=== PATIENT | female | born 1995 | race Hispanic/Latino ===

== ENCOUNTER 2022-03-20 15:08 | Emergency (ER) | payer OTHER ==
--- OUTSIDE RECORDS SUMMARY | 2022-03-20 15:36 | XMS REPORT | Continuity of Care Document ---
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 Medical Branch CBC WITH DIFF 2019-11-29 06:06:00 [facility] ASSIGNMENT OF BENEFITS 2019-11-29 04:19:38 Doctor Unassigned, No [facility] NOTICE OF PRIVACY 2019-11-29 04:19:22 Doctor Unassigned, No Univ ersity of [facility] Branch CONSENT/REFUSAL FOR 2019-11-29 04:19:12 Doctor Unassigned, No [facility] [place] DI[facility]NOSIS [facility] TREATMENT Name Medical Branch LIPASE 2019-09-04 17:20:00 [facility] MAGNESIUM 2019-09-04 17:20:00 [facility] COMP. METABOLIC PANEL 2019-09-04 17:20:00 [facility] ([id number]) [facility] CBC WITH DIFFERENTIAL 2019-09-04 17:20:00 [facility] URINALYSIS 2019-09-04 17:20:00 [facility] NOTICE OF PRIVACY 2019-09-04 17:03:43 Doctor Unassigned, No Univ ersity of [facility] CONSENT/REFUSAL FOR 2019-09-04 17:02:46 Doctor Unassigned, No [facility] [place] DIAGNOSIS AND TREATMENT Name [facility] Branch LIPASE 2019-08-24 10:06:00 Sudarshan Ortez [facility] COMP. METABOLIC PANEL 2019-08-24 10:06:00 Sudarshan Ortez [facility] ([id number]) [facility] Branch CBC WITH DIFFERENTIAL 2019-08-24 10:06:00 [facility] URINALYSIS 2019-08-24 10:06:00 Sudarshan Ortez [facility] NOTICE OF PRIVACY 2019-08-24 09:41:31 Doctor Unassigned, No Univ ersity of [facility] Branch CONSENT/REFUSAL FOR 2019-08-24 09:40:59 Doctor Unassigned, No [facility] [place] DIAGNOSIS AND TREATMENT Name Medical [place] BASIC METABOLIC PANEL 2019-07-26 16:43:00 Chel Grove [facility] (NA, K, CL, CO2, Medical Branch GLUCOSE, BUN, CREATININE, CA) Plan of Care Planned Activity Planned Date Details Comments Source Future Scheduled Test 2022-01-01 00:00:00 IMM Influenza [facility] Seasonal (>/= 19 yrs) [code = IMM Influenza Seasonal (>/= 19 yrs)] Future Scheduled Test 2022-01-01 00:00:00 IMM Influenza [facility] Seasonal (>/= 19 yrs) [code = IMM Influenza Seasonal (>/= 19 yrs)] Future Scheduled Test 2015 00:00:00 Screening for [facility] malignant neoplasm of cervix (procedure) [code = 174716412] Future Scheduled Test 2015 00:00:00 Screening for [facility] malignant neoplasm of cervix (procedure) [code = 281039582] Future Scheduled Test 1994 00:00:00 COVID-19 Vaccine (#1) [facility] [code = COVID-19 Vaccine (#1)] Future Scheduled Test 1994 00:00:00 COVID-19 Vaccine (#1) [facility] [code = COVID-19 Vaccine (#1)] Future Scheduled Test 1994 00:00:00 Fluoride Varnish [facility] [code = Fluoride Varnish] Encounters Start End Encounter Admission Attending Care Care Encounter Source Date/Time Date/Time Type Type Clinicians Facility Department ID 2018-04-02 Inpatient [facility] [id number] H arris 00:00:00 [facility] 2018-03-29 Inpatient [facility] [id number] H arris 15:53:12 [facility] 2018-03-26 Inpatient [facility] [id number] H arris 17:23:46 [facility] 2018-03-26 Inpatient [facility] [id number] H arris 06:34:09 [facility] 2018-03-20 Inpatient [facility] [id number] H arris 16:55:55 Health 2018-03-20 Inpatient [facility] [id number] H arris 13:04:03 [facility] 2018-03-20 Inpatient [facility] [id number] H arris 07:54:32 Health 2018-03-20 Inpatient [facility] [id number] H arris 03:08:50 Health 2018-03-19 Inpatient [facility] [id number] H arris 16:40:13 [facility] 2018-03-19 Inpatient [facility] [id number] H arris 12:31:23 Health 2018-03-19 Inpatient [facility] [id number] H arris 00:00:00 Health 2018-03-18 Inpatient [facility] [id number] H arris 00:00:00 [facility] 2019-12-28 2019-12-28 [facility] Kamari [facility] [id number] Univers 15:32:00 19:10:00 Encounter Jasmin Lamb [id number] ity of [place] 4.2.7.2.686 [facility] [id number] [place] [address] [place] 2019-12-28 2019-12-28 Outpatient P GENNAJASMIN PEPPER [facility] FERMÍN [id number] Univers 15:32:00 15:32:00 EMMANUELJASMIN Spaulding [facility] 2019-11-28 2019-11-29 [facility] Zenobia Lockett [facility] [id number] Univers 23:21:00 13:10:00 Encounter Adonis [id number] ity of [place] 4.2.7.[address] [place] [address] [id number] [place] [address]903 [place] 2019-11-28 2019-11-28 Outpatient P TOMASENEDINA [facility] FERMÍN [id number] Univers 23:21:00 23:21:00 ity of [facility] 2019-11-28 2019-11-28 Orders Doctor HARRISON [id number] Univers 00:00:00 00:00:00 Only Unassigned, ERICKSON [id number] ity of [place] [facility] 4.2.7.2.686 [place] [id number] [facility] 009 Branch 2019-09-04 2019-09-04 Emergency [facility] [id number] Univers 12:09:18 14:18:00 Nick Lamb [id number] i ty of [place] 4.2.7.2.686 [facility] [id number] [facility] 084 Branch 2019-09-04 2019-09-04 Emergency [facility] [id number] Univers 12:09:18 12:09:18 NICK candelaria [facility] 2019-09-04 2019-09-04 Orders Doctor HARRISON [id number] Univers 00:00:00 00:00:00 Only Unassigned, ERICKSON [id number] ity of [facility] 4.2.7.2.686 [place] [id number] [facility] 009 [place] 2019-08-24 2019-08-24 Emergency [facility] [id number] Univers 04:44:43 08:22:00 Sudarshan Lamb [id number] ity of [place] 4.2.7.2.686 [facility] [id number] [address] 2019-08-24 2019-08-24 Emergency X [facility] ERT [id number] Univers 04:44:43 04:44:43 ity of [facility] 2019-07-26 2019-07-26 Emergency [facility] [id number] Univers 11:18:56 12:25:00 Chel Lamb [id number] i ty of [place] 4.2.7.2.686 [facility] [id number] [address] 2019-07-26 2019-07-26 Emergency X [facility] ERT [id number] Univers 11:18:56 11:18:56 CHEL candelaria [facility] 2018-07-18 2018-07-18 Outpatient [facility] [id number] [place] 00:00:00 00:00:00 [facility] 2018-07-11 2018-07-11 Outpatient [facility] [id number] [place] 00:00:00 00:00:00 [facility] 2018-07-04 2018-07-04 Outpatient [facility] [id number] [place] 00:00:00 00:00:00 [facility] 2018-06-22 2018-06-22 Outpatient [facility] [id number] [place] 11:22:05 11:22:05 Health 2018-06-22 2018-06-22 Outpatient [facility] [id number] [place] 10:39:15 10:39:15 Health 2018-06-08 2018-06-08 Outpatient [facility] [id number] [place] 00:00:00 00:00:00 [facility] 2018-06-07 2018-06-07 Outpatient [facility] [id number] [place] 14:52:46 14:52:46 Health 2018-06-06 2018-06-06 Emergency [facility] [id number] [place] 06:11:03 06:11:03 Health 2018-06-06 2018-06-06 Outpatient [facility] [id number] [place] 01:10:32 01:10:32 Health 2018-06-06 2018-06-06 Outpatient [facility] [id number] [place] 00:00:00 00:00:00 [facility] 2018-05-23 2018-05-23 Outpatient [facility] [id number] [place] 00:00:00 00:00:00 [facility] 2018-05-23 2018-05-23 Outpatient [facility] [id number] [place] 00:00:00 00:00:00 [facility] 2018-04-25 2018-04-25 Outpatient [facility] [id number] [place] 00:00:00 00:00:00 [facility] 2018-04-25 2018-04-25 Outpatient [facility] [id number] [place] 00:00:00 00:00:00 [facility] 2018-04-16 2018-04-16 Outpatient [facility] [id number] [place] 00:00:00 00:00:00 [facility] 2018-04-04 2018-04-04 Outpatient [facility] [id number] [place] 00:00:00 00:00:00 [facility] 2018-04-02 2018-04-02 Outpatient [facility] [id number] [place] 00:00:00 00:00:00 [facility] 2018-04-02 2018-04-02 Outpatient [facility] [id number] [place] 00:00:00 00:00:00 [facility] 2018-03-30 2018-03-30 Emergency [facility] [id number] Low 17:22:02 17:22:02 Health 2018-03-16 2018-03-16 Outpatient [facility] [id number] [place] 15:42:26 15:42:26 Health 2018-03-16 2018-03-16 Outpatient [facility] [id number] [place] 11:15:25 11:15:25 Health 2018-03-15 2018-03-15 Inpatient [facility] [id number] [place] 01:15:35 01:15:35 Health Results Test Description Test Time Test Comments Results Result Comments Source COMP. METABOLIC PANEL ([id number]) 2019-12-28 23:16:00 Test Item Value Reference Range Interpretation Comme nts NA (test code = 5151797884) 132 mmol/L 135-145 L K (test code = 9399271087) 4.5 mmol/L 3.5-5 CL (test code = 2055597621) 104 mmol/L 98-108 CO2 TOTAL (test code = 1780287225) 20 mmol/L 23-31 L AGAP (test code = 8795303972) 2-16 BUN (test code = 8802787062) 6 mg/dL 7-23 L GLUCOSE (test code = 0861433544) 71 mg/dL 70-110 CREATININE (test code = 0.49 mg/dL 0.5-1.04 L 5315463509) TOTAL BILI (test code = 1.3 mg/dL 0.1-1.1 H 2970420024) CALCIUM (test code = 6333869871) 8.7 mg/dL 8.6-10.6 T PROTEIN (test code = 0137636159) 6.3 g/dL 6.3-8.2 ALBUMIN (test code = 4527611499) 3.2 g/dL 3.5-5 L ALK PHOS (test code = 7505323292) 235 U/L 34-122 H ALTv (test code = 1742-6) 11 U/L 5-35 AST(SGOT) (test code = 7070176302) 32 U/L 13-40 eGFR Calculation (Non- mL/min/1.73m2 Sudanese) (test code = 9736877465) eGFR Calculation ( mL/min/1.73m2 Sudanese) (test code = 7562628206) BENITO (test code = BENITO) Association of Glomerular Filtration Rate (GFR) and Staging of Kidney Disease* + +-------- + ------+| GFR (mL/min/1.73 m2) ?| With Kidney Damage ?| ?Without Kidney Damage+ +-- + +| ?>90 ?| ?Stage one ?| ? Normal ?+ +------- + -------+| ?60-89 ?| ?Stage two ?| ? Decreased GFR ? + +-------- + ------+| ?30-59 ?| ?Stage three ?| ? Stage three ? + +-------- + ------+| ?15-29 ?| ?Stage four ? | ? Stage four ?+ +------- + -------+| ?<15 (or dialysis) ? ?| ?Stage five ? | ? Stage five ?+ +------- + -------+ *Each stage assumes the associated GFR level has been in effect for at least three months. ?Stages 1 to 5, with or without kidney disease, indicate chronic kidney disease. Notes: Determination of stages one and two (with eGFR >59mL/min/1.73 m2) requires estimation of kidney damage for at least three months as defined by structural or functional abnormalities of the kidney, manifested by either:Pathological abnormalities or Markers of kidney damage (including abnormalities in the composition of the blood or urine or abnormalities in imaging tests). Lab Interpretation (test code = Abnormal 28529-3) [facility] WITH [id number] 22:27:00 Test Item Value Reference Range Interpretation Comments WBC (test code = See_Comment [Automated 1090-2) message] The sy stem which generated this result transmitted reference range : 4.30 - 11.10 10*3/?L. The reference range was not used to interpret this result as normal/abnormal . RBC (test code = See_Comment L [Automated 789-8) message] The sy stem which generated this result transmitted reference range : 3.93 - 5.25 10*6/?L. The reference range was not used to interpret this result as normal/abnormal . HGB (test code = 11.2 g/dL 11.6-15 L 718-7) HCT (test code = 33.6 % 35.7-45.2 L 4544-3) MCV (test code = 91.1 fL 80.6-95.5 787-2) MCH (test code = 30.4 pg 25.9-32.8 785-6) MCHC (test code = 33.3 g/dL 31.6-35.1 786-4) RDW-SD (test code = 39.2 fL 39-49.9 02105-8) RDW-CV (test code = 11.9 % 12-15.5 L 788-0) PLT (test code = See_Comment [Automated 777-3) message] The sy stem which generated this result transmitted reference range : 166 - 358 10*3/ ?L. The reference r henry was not used to interpret this result as normal/abnormal . MPV (test code = 11.1 fL 9.5-12.9 58593-3) NRBC/100 WBC (test See_Comment [Automat ed code = 9423894813) message] The system which generated this result transmitted reference range : 0.0 - 10.0 /100 WBCs. The refer ence range was not u sed to interpret th is result as normal/abnormal . NRBC x10^3 (test code <0.01 See_Comment [Auto mated = 9188843596) message] The s ystem which generated this result transmitted reference range : 10*3/?L. The reference range was not used to interpret this result as normal/abnormal . GRAN MAT (NEUT) % 75.7 % (test code = 770-8) IMM GRAN % (test code 0.30 % = 9358364991) LYMPH % (test code = 18.7 % 736-9) MONO % (test code = 4.8 % 5905-5) EOS % (test code = 0.3 % 713-8) BASO % (test code = 0.2 % 706-2) GRAN MAT x10^3(ANC) 6.73 10*3/uL 1.88-7.09 (test code = 9613228351) IMM GRAN x10^3 (test 0.03 10*3/uL 0-0.06 code = 3787857187) LYMPH x10^3 (test code 1.67 10*3/uL 1.32-3.29 = 731-0) MONO x10^3 (test code 0.43 10*3/uL 0.33-0.92 = 742-7) EOS x10^3 (test code = 0.03 10*3/uL 0.03-0.39 711-2) BASO x10^3 (test code <0.03 0.01-0.07 = 704-7) Lab Interpretation Abnormal (test code = 15802-7) [facility]APID [facility]2019-12-28 21:42:00 Test Item Value Reference Range Interpretation Comments SARS-CoV-2 Rapid ID NOW Not Detected Not Detected (test code = 77494-7) BENITO (test code = BENITO) ID NOW COVID-19 Assay is an isothermal nucleic acid amplification test intended for the qualitative detection of nucleic acid from SARS-CoV-2 viral RNA in nasopharyngeal (FINANCIAL BUSINESS ANALYST) specimens. It is used under Emergency Use Authorization (EUA) by FDA. The limit of detection (LOD) of the assay is 125 Genome Equivalents/mL. A positive result is indicative of the presence of SARS-CoV-2 RNA. ?Clinical correlation with patient history and other diagnostic information is necessary to determine patient infection status. A negative (Not Detected) result does not preclude SARS-CoV-2 infection. In patients with clinical symptoms and other tests that are consistent with SARS-CoV-2 infection, negative results should be treated as presumptive negative and a new specimen should be tested with alternative PCR molecular test. Invalid: Please collect a new specimen for repeat patient testing if clinically indicated. Lab Interpretation Normal (test code = 16750-7) [facility] [id number] 07:49:00 Test Item Value Reference Range Interpretation Comments URIC ACID (test code = 4812086994) 4.3 mg/dL 2.9-6 Lab Interpretation (test code = Normal 01866-3) [facility] (52769)2019-11-29 07:48:00 Test Item Value Reference Range Interpretation Comments NA (test code = 133 mmol/L 135-145 L 1221911728) K (test code = 3.5 mmol/L 3.5-5 7384936417) CL (test code = 104 mmol/L 98-108 2805688566) CO2 TOTAL (test code = 23 mmol/L 23-31 3943041151) AGAP (test code = 2-16 7254504790) BUN (test code = 7 mg/dL 7-23 5841041083) GLUCOSE (test code = 87 mg/dL 70-110 6499089611) CREATININE (test code = 0.54 mg/dL 0.5-1.04 3879528756) TOTAL BILI (test code = 0.9 mg/dL 0.1-1.4 0436949730) CALCIUM (test code = 8.8 mg/dL 8.6-10.6 0589211793) T PROTEIN (test code = 6.5 g/dL 6.3-8.2 1445597338) ALBUMIN (test code = 3.7 g/dL 3.5-5 4120384685) ALK PHOS (test code = 148 U/L 34-122 H 9879718471) ALTv (test code = 11 U/L 5-35 1742-6) AST(SGOT) (test code = 23 U/L 13-40 1775345194) eGFR Calculation mL/min/1.73m2 (Non-) (test code = 7601045746) eGFR Calculation mL/min/1.73m2 () (test code = 0756260202) BENITO (test code = BENITO) Association of Glomerular Filtration Rate (GFR) and Staging of Kidney Disease* + --+ --+ ------+| GFR (mL/min/1.73 m2) ?| With Kidney Damage ?| ?Without Kidney Damage+ --------+ --------+ +| ?>90 ?| ?Stage one ?| ? Normal ?+ ---+ ---+ -------+| ?60-89 ?| ?Stage two ?| ? Decreased GFR ? + --+ --+ ------+| ?30-59 ?| ?Stage three ?| ? Stage three ? + --+ --+ ------+| ?15-29 ?| ?Stage four ? | ? Stage four ?+ ---+ ---+ -------+| ?<15 (or dialysis) ? ?| ?Stage five ? | ? Stage five ?+ ---+ ---+ -------+ *Each stage assumes the associated GFR level has been in effect for at least three months. ?Stages 1 to 5, with or without kidney disease, indicate chronic kidney disease. Notes: Determination of stages one and two (with eGFR >59mL/min/1.73 m2) requires estimation of kidney damage for at least three months as defined by structural or functional abnormalities of the kidney, manifested by either:Pathological abnormalities or Markers of kidney damage (including abnormalities in the composition of the blood or urine or abnormalities in imaging tests). Lab Interpretation Abnormal (test code = 87440-8) [facility] 07:48:00 Test Item Value Reference Range Interpretation Comments DORI (test code = 9735092648) 198 U/L 35-110 H Lab Interpretation (test code = Abnormal 63726-9) [facility]2020-08[facility]28 07:48:00 Test Item Value Reference Range Interpretation Comments LIPASE (test code = 0040974449) 180 U/L 0-220 Lab Interpretation (test code = Normal 23460-3) [facility] [id number] 07:47:00 Test Item Value Reference Range Interpretation Comments LDH (test code = 1325937560) 323 U/L 300-600 Lab Interpretation (test code = Normal 16505-3) [facility]2020-08-28 07:20:00 Test Item Value Reference Range Interpretation Comments Fibrinogen (test code = 5292507207) 362 mg/dL 214-470 Lab Interpretation (test code = Normal 66719-2) [facility]2020-08-28 07:18:00 Test Item Value Reference Range Interpretation Comments APPEARANCE (test code = Hazy Clear A 5474666334) COLOR (test code = Yellow Yellow 4340489378) PH (test code = 4.8-8.0 4272622618) SP GRAVITY (test code = 1.003-1.030 9850944857) GLU U QUAL (test code = Normal Normal 6689761417) BLOOD (test code = Negative Negative 1404114413) KETONES (test code = Negative Negative 7758232523) PROTEIN (test code = Negative Negative 2887-8) UROBILIN (test code = Normal Normal 4516451898) BILIRUBIN (test code = Negative Negative 5726576411) NITRITE (test code = Negative Negative 4528507132) LEUK DEE DEE (test code = Negative Negative 5856000759) RBC/HPF (test code = See_Comment [Autom ated message] 9227958338) The system [employer] generated this result transmitted ref erence range: 0 - 3 HP F. The reference range was not used to int erpret this result as normal/abnormal . WBC/HPF (test code = <1 See_Comment [Autom ated message] 7017311605) The system [employer] generated this result transmitted ref erence range: 0 - 5 HP F. The reference range was not used to int erpret this result as normal/abnormal . BACTERIA (test code = Few Negative A 9812521423) MUCOUS (test code = Slight Negative LPF A 9752742632) AMORPHOUS (test code = Many Rare HPF A 5188256896) SQ EPITH (test code = HPF 4130552348) Lab Interpretation (test Abnormal code = 16181-3) [facility] ([facility] NOW RAPID TESTING)2019-11-29 07:11:00 Test Item Value Reference Range Interpretation Comments SARS-CoV-2 Rapid ID NOW Not Detected Not Detected (test code = 01771-6) BENITO (test code = BENITO) ID NOW COVID-19 Assay is an isothermal nucleic acid amplification test intended for the qualitative detection of nucleic acid from SARS-CoV-2 viral RNA in nasopharyngeal (FINANCIAL BUSINESS ANALYST) specimens. It is used under Emergency Use Authorization (EUA) by FDA. The limit of detection (LOD) of the assay is 125 Genome Equivalents/mL. A positive result is indicative of the presence of SARS-CoV-2 RNA. ?Clinical correlation with patient history and other diagnostic information is necessary to determine patient infection status. A negative (Not Detected) result does not preclude SARS-CoV-2 infection. In patients with clinical symptoms and other tests that are consistent with SARS-CoV-2 infection, negative results should be treated as presumptive negative and a new specimen should be tested with alternative PCR molecular test. Invalid: Please collect a new specimen for repeat patient testing if clinically indicated. Lab Interpretation Normal (test code = 80745-5) [facility] WITH [id number] 06:50:00 Test Item Value Reference Range Interpretation Comments WBC (test code = See_Comment [Automated 3490-2) message] The sy stem which generated this result transmitted reference range : 4.30 - 11.10 10*3/?L. The reference range was not used to interpret this result as normal/abnormal . RBC (test code = See_Comment L [Automated 839-8) message] The sy stem which generated this result transmitted reference range : 3.93 - 5.25 10*6/?L. The reference range was not used to interpret this result as normal/abnormal . HGB (test code = 11.4 g/dL 11.6-15 L 718-7) HCT (test code = 32.5 % 35.7-45.2 L 4544-3) MCV (test code = 91.5 fL 80.6-95.5 787-2) MCH (test code = 32.1 pg 25.9-32.8 785-6) MCHC (test code = 35.1 g/dL 31.6-35.1 786-4) RDW-SD (test code = 39.7 fL 39-49.9 81565-5) RDW-CV (test code = 11.8 % 12-15.5 L 788-0) PLT (test code = See_Comment [Automated 777-3) message] The sy stem which generated this result transmitted reference range : 166 - 358 10*3/ ?L. The reference r henry was not used to interpret this result as normal/abnormal . MPV (test code = 9.9 fL 9.5-12.9 56456-2) NRBC/100 WBC (test See_Comment [Automat ed code = 7207000045) message] The system which generated this result transmitted reference range : 0.0 - 10.0 /100 WBCs. The refer ence range was not u sed to interpret th is result as normal/abnormal . NRBC x10^3 (test code <0.01 See_Comment [Auto mated = 3835864898) message] The s ystem which generated this result transmitted reference range : 10*3/?L. The reference range was not used to interpret this result as normal/abnormal . GRAN MAT (NEUT) % 79.5 % (test code = 770-8) IMM GRAN % (test code 0.50 % = 7912237794) LYMPH % (test code = 15.0 % 736-9) MONO % (test code = 4.2 % 5905-5) EOS % (test code = 0.5 % 713-8) BASO % (test code = 0.3 % 706-2) GRAN MAT x10^3(ANC) 7.64 10*3/uL 1.88-7.09 H (test code = 6079691285) IMM GRAN x10^3 (test 0.05 10*3/uL 0-0.06 code = 5060718368) LYMPH x10^3 (test code 1.44 10*3/uL 1.32-3.29 = 731-0) MONO x10^3 (test code 0.40 10*3/uL 0.33-0.92 = 742-7) EOS x10^3 (test code = 0.05 10*3/uL 0.03-0.39 711-2) BASO x10^3 (test code 0.03 10*3/uL 0.01-0.07 = 704-7) Lab Interpretation Abnormal (test code = 76908-8) [facility] Test Item Value Reference Range Interpretation Comments MAGNESIUM (test code = 0457217766) 2.0 mg/dL 1.7-2.4 Lab Interpretation (test code = Normal 09095-4) [facility] Test Item Value Reference Range Interpretation Comments APPEARANCE (test code = Clear Clear 2408264014) COLOR (test code = Yellow Yellow 4174746443) PH (test code = 4.8-8.0 3157452938) SP GRAVITY (test code = >=1.030 1.003-1.030 9770695584) GLU U QUAL (test code = Negative Negative 3720855684) BLOOD (test code = Negative Negative 2683298331) KETONES (test code = 15 mg/dL Negative A 7061972915) PROTEIN (test code = 100 mg/dL Negative A 2887-8) UROBILIN (test code = 1.0 mg/dL See_Comment [Auto mated message] 9943630686) The system [employer] generated this result transmit cassidy reference range : 0-1.0 mg/dL. Th e reference range was not used to interpret this result as normal/abnormal . BILIRUBIN (test code = Small Negative A 9503200333) NITRITE (test code = Negative Negative 3536323355) LEUK DEE DEE (test code = Negative Negative 1074102171) RBC/HPF (test code = See_Comment [Autom ated message] 6186292402) The system [employer] generated this result transmit cassidy reference range : 0 - 3 HPF. The refe rence range was not u sed to interpret th is result as normal/abnormal . WBC/HPF (test code = <=1 See_Comment [Autom ated message] 3295399077) The system [employer] generated this result transmit cassidy reference range : 0 - 5 HPF. The refe rence range was not u sed to interpret th is result as normal/abnormal . BACTERIA (test code = Few Negative A 3094163925) SQ EPITH (test code = HPF 8559011396) Ictotest (test code = Positive 4372170495) Lab Interpretation (test Abnormal code = 10830-8) [facility]. METABOLIC PANEL ([id number])2019-09-04 17:51:00 Test Item Value Reference Range Interpretation Comments NA (test code = 133 mmol/L 135-145 L 4106869118) K (test code = 3.8 mmol/L 3.5-5 1119556669) CL (test code = 103 mmol/L 98-108 4005180556) CO2 TOTAL (test code = 22 mmol/L 23-31 L 9825972341) AGAP (test code = 2-16 6024104689) BUN (test code = 11 mg/dL 7-23 8409009502) GLUCOSE (test code = 97 mg/dL 70-110 6434923523) CREATININE (test code = 0.55 mg/dL 0.5-1.04 1487768277) TOTAL BILI (test code = 1.3 mg/dL 0.1-1.1 H 6246506444) CALCIUM (test code = 9.5 mg/dL 8.6-10.6 7840516095) T PROTEIN (test code = 8.0 g/dL 6.3-8.2 2283116301) ALBUMIN (test code = 4.6 g/dL 3.5-5 7608142699) ALK PHOS (test code = 93 U/L 34-122 2549214181) ALTv (test code = 19 U/L 5-35 1742-6) AST(SGOT) (test code = 27 U/L 13-40 8482197582) eGFR Calculation mL/min/1.73m2 (Non-) (test code = 2221069445) eGFR Calculation mL/min/1.73m2 () (test code = 8533289670) BENITO (test code = BENITO) Association of Glomerular Filtration Rate (GFR) and Staging of Kidney Disease* + --+ --+ ------+| GFR (mL/min/1.73 m2) ?| With Kidney Damage ?| ?Without Kidney Damage+ --------+ --------+ +| ?>90 ?| ?Stage one ?| ? Normal ?+ ---+ ---+ -------+| ?60-89 ?| ?Stage two ?| ? Decreased GFR ? + --+ --+ ------+| ?30-59 ?| ?Stage three ?| ? Stage three ? + --+ --+ ------+| ?15-29 ?| ?Stage four ? | ? Stage four ?+ ---+ ---+ -------+| ?<15 (or dialysis) ? ?| ?Stage five ? | ? Stage five ?+ ---+ ---+ -------+ *Each stage assumes the associated GFR level has been in effect for at least three months. ?Stages 1 to 5, with or without kidney disease, indicate chronic kidney disease. Notes: Determination of stages one and two (with eGFR >59mL/min/1.73 m2) requires estimation of kidney damage for at least three months as defined by structural or functional abnormalities of the kidney, manifested by either:Pathological abnormalities or Markers of kidney damage (including abnormalities in the composition of the blood or urine or abnormalities in imaging tests). Lab Interpretation Abnormal (test code = 07189-8) [facility] Test Item Value Reference Range Interpretation Comments LIPASE (test code = 2493798704) 290 U/L 0-220 H Lab Interpretation (test code = Abnormal 14067-7) [facility] [id number] 17:34:00 Test Item Value Reference Range Interpretation Comments WBC (test code = See_Comment [Automated 4284-2) message] The sy stem which generated this result transmitted reference range : 4.30 - 11.10 10*3/?L. The reference range was not used to interpret this result as normal/abnormal . RBC (test code = See_Comment [Automated 891-3) message] The sy stem which generated this result transmitted reference range : 3.93 - 5.25 10*6/?L. The reference range was not used to interpret this result as normal/abnormal . HGB (test code = 14.0 g/dL 11.6-15 718-7) HCT (test code = 39.6 % 35.7-45.2 4544-3) MCV (test code = 93.0 fL 80.6-95.5 787-2) MCH (test code = 32.9 pg 25.9-32.8 H 785-6) MCHC (test code = 35.4 g/dL 31.6-35.1 H 786-4) RDW-SD (test code = 41.2 fL 39-49.9 60401-5) RDW-CV (test code = 12.0 % 12-15.5 788-0) PLT (test code = See_Comment [Automated 777-3) message] The sy stem which generated this result transmitted reference range : 166 - 358 10*3/ ?L. The reference r henry was not used to interpret this result as normal/abnormal . MPV (test code = 9.7 fL 9.5-12.9 77218-8) NRBC/100 WBC (test See_Comment [Automat ed code = 5403045628) message] The system which generated this result transmitted reference range : 0.0 - 10.0 /100 WBCs. The refer ence range was not u sed to interpret th is result as normal/abnormal . NRBC x10^3 (test code <0.01 See_Comment [Auto mated = 9431497234) message] The s ystem which generated this result transmitted reference range : 10*3/?L. The reference range was not used to interpret this result as normal/abnormal . GRAN MAT (NEUT) % 74.5 % (test code = 770-8) IMM GRAN % (test code 0.30 % = 3834755971) LYMPH % (test code = 20.0 % 736-9) MONO % (test code = 4.3 % 5905-5) EOS % (test code = 0.6 % 713-8) BASO % (test code = 0.3 % 706-2) GRAN MAT x10^3(ANC) 6.40 10*3/uL 1.88-7.09 (test code = 5630107417) IMM GRAN x10^3 (test 0.03 10*3/uL 0-0.06 code = 3433212715) LYMPH x10^3 (test code 1.72 10*3/uL 1.32-3.29 = 731-0) MONO x10^3 (test code 0.37 10*3/uL 0.33-0.92 = 742-7) EOS x10^3 (test code = 0.05 10*3/uL 0.03-0.39 711-2) BASO x10^3 (test code 0.03 10*3/uL 0.01-0.07 = 704-7) Lab Interpretation Abnormal (test code = 71036-0) [facility] Test Item Value Reference Range Interpretation Comments APPEARANCE (test code = Clear Clear 4137570614) COLOR (test code = Ofelia Yellow A 8147902984) PH (test code = 4.8-8.0 0522737643) SP GRAVITY (test code = 1.003-1.030 8324099525) GLU U QUAL (test code = Normal Normal 9809782209) BLOOD (test code = Negative Negative INTERFERE NCE FROM 1783232978) ASCORBIC ACID M AY CAUSE FALSE NEG ATIVE RESULT KETONES (test code = 20 mg/dL Negative A 9705006047) PROTEIN (test code = 100 mg/dL Negative A 2887-8) UROBILIN (test code = Normal Normal 0782219143) BILIRUBIN (test code = Negative Negative 3274607957) NITRITE (test code = Negative Negative 9297253105) LEUK DEE DEE (test code = Negative Negative 3898827537) RBC/HPF (test code = See_Comment [Autom ated message] 0423564122) The system [employer] generated this result transmitted ref erence range: 0 - 3 HP F. The reference range was not used to int erpret this result as normal/abnormal . WBC/HPF (test code = See_Comment [Autom ated message] 0732212519) The system [employer] generated this result transmitted ref erence range: 0 - 5 HP F. The reference range was not used to int erpret this result as normal/abnormal . BACTERIA (test code = Few Negative A 1673921668) MUCOUS (test code = Marked Negative LPF A 0022720280) SQ EPITH (test code = HPF 4578092562) Lab Interpretation Abnormal (test code = 02374-7) [facility]00 Test Item Value Reference Range Interpretation Comments LIPASE (test code = 0949866527) 249 U/L 0-220 H Lab Interpretation (test code = Abnormal 75480-0) [facility]. METABOLIC PANEL ([id number])2019-08-24 10:54:00 Test Item Value Reference Range Interpretation Comments NA (test code = 134 mmol/L 135-145 L 9981352207) K (test code = 3.3 mmol/L 3.5-5 L 3727211003) CL (test code = 104 mmol/L 98-108 3003132432) CO2 TOTAL (test code = 21 mmol/L 23-31 L 5921467347) AGAP (test code = 2-16 0556110475) BUN (test code = 9 mg/dL 7-23 9657941134) GLUCOSE (test code = 111 mg/dL 70-110 H 5962607570) CREATININE (test code = 0.52 mg/dL 0.5-1.04 6603930420) TOTAL BILI (test code = 1.1 mg/dL 0.1-1.4 9526959887) CALCIUM (test code = 9.2 mg/dL 8.6-10.6 7859542220) T PROTEIN (test code = 7.5 g/dL 6.3-8.2 7457380977) ALBUMIN (test code = 4.4 g/dL 3.5-5 0668317391) ALK PHOS (test code = 81 U/L 34-122 9911755249) ALTv (test code = 11 U/L 5-35 1742-6) AST(SGOT) (test code = 21 U/L 13-40 6162664563) eGFR Calculation mL/min/1.73m2 (Non-) (test code = 2919679127) eGFR Calculation mL/min/1.73m2 () (test code = 8862037302) BENITO (test code = BENITO) Association of Glomerular Filtration Rate (GFR) and Staging of Kidney Disease* + --+ --+ ------+| GFR (mL/min/1.73 m2) ?| With Kidney Damage ?| ?Without Kidney Damage+ --------+ --------+ +| ?>90 ?| ?Stage one ?| ? Normal ?+ ---+ ---+ -------+| ?60-89 ?| ?Stage two ?| ? Decreased GFR ? + --+ --+ ------+| ?30-59 ?| ?Stage three ?| ? Stage three ? + --+ --+ ------+| ?15-29 ?| ?Stage four ? | ? Stage four ?+ ---+ ---+ -------+| ?<15 (or dialysis) ? ?| ?Stage five ? | ? Stage five ?+ ---+ ---+ -------+ *Each stage assumes the associated GFR level has been in effect for at least three months. ?Stages 1 to 5, with or without kidney disease, indicate chronic kidney disease. Notes: Determination of stages one and two (with eGFR >59mL/min/1.73 m2) requires estimation of kidney damage for at least three months as defined by structural or functional abnormalities of the kidney, manifested by either:Pathological abnormalities or Markers of kidney damage (including abnormalities in the composition of the blood or urine or abnormalities in imaging tests). Lab Interpretation Abnormal (test code = 64279-1) [facility] WITH [id number] 10:44:00 Test Item Value Reference Range Interpretation Comments WBC (test code = See_Comment [Automated 3177-2) message] The sy stem which generated this result transmitted reference range : 4.30 - 11.10 10*3/?L. The reference range was not used to interpret this result as normal/abnormal . RBC (test code = See_Comment [Automated 570-8) message] The sy stem which generated this result transmitted reference range : 3.93 - 5.25 10*6/?L. The reference range was not used to interpret this result as normal/abnormal . HGB (test code = 13.4 g/dL 11.6-15 718-7) HCT (test code = 36.7 % 35.7-45.2 4544-3) MCV (test code = 90.4 fL 80.6-95.5 787-2) MCH (test code = 33.0 pg 25.9-32.8 H 785-6) MCHC (test code = 36.5 g/dL 31.6-35.1 H 786-4) RDW-SD (test code = 39.2 fL 39-49.9 29220-8) RDW-CV (test code = 11.8 % 12-15.5 L 788-0) PLT (test code = See_Comment [Automated 777-3) message] The sy stem which generated this result transmitted reference range : 166 - 358 10*3/ ?L. The reference r henry was not used to interpret this result as normal/abnormal . MPV (test code = 10.0 fL 9.5-12.9 43325-9) NRBC/100 WBC (test See_Comment [Automat ed code = 2561844829) message] The system which generated this result transmitted reference range : 0.0 - 10.0 /100 WBCs. The refer ence range was not u sed to interpret th is result as normal/abnormal . NRBC x10^3 (test code <0.01 See_Comment [Auto mated = 8504262057) message] The s ystem which generated this result transmitted reference range : 10*3/?L. The reference range was not used to interpret this result as normal/abnormal . GRAN MAT (NEUT) % 79.5 % (test code = 770-8) IMM GRAN % (test code 0.30 % = 4108646491) LYMPH % (test code = 14.0 % 736-9) MONO % (test code = 5.4 % 5905-5) EOS % (test code = 0.6 % 713-8) BASO % (test code = 0.2 % 706-2) GRAN MAT x10^3(ANC) 7.40 10*3/uL 1.88-7.09 H (test code = 2188077156) IMM GRAN x10^3 (test 0.03 10*3/uL 0-0.06 code = 9927601571) LYMPH x10^3 (test code 1.30 10*3/uL 1.32-3.29 L = 731-0) MONO x10^3 (test code 0.50 10*3/uL 0.33-0.92 = 742-7) EOS x10^3 (test code = 0.06 10*3/uL 0.03-0.39 711-2) BASO x10^3 (test code <0.03 0.01-0.07 = 704-7) Lab Interpretation Abnormal (test code = 02908-4) [facility] (NA, K, CL, CO2, GLUCOSE, BUN, CREATININE, CA)2019-07-26 17:25:00 Test Item Value Reference Range Interpretation Comments NA (test code = 136 mmol/L 135-145 0429698199) K (test code = 4.0 mmol/L 3.5-5 6699597819) CL (test code = 101 mmol/L 98-108 9336009757) CO2 TOTAL (test code = 25 mmol/L 23-31 3775717534) AGAP (test code = 2-16 8755607686) BUN (test code = 11 mg/dL 7-23 1879521455) GLUCOSE (test code = 99 mg/dL 70-110 0565243194) CREATININE (test code 0.56 mg/dL 0.5-1.04 = 0054885347) CALCIUM (test code = 9.6 mg/dL 8.6-10.6 0167705202) eGFR Calculation mL/min/1.73m2 (Non-) (test code = 6272235520) eGFR Calculation mL/min/1.73m2 () (test code = 7617209841) BENITO (test code = BENITO) Association of Glomerular Filtration Rate (GFR) and Staging of Kidney Disease* + -+ + ---+| GFR (mL/min/1.73 m2) ?| With Kidney Damage ?| ?Without Kidney Damage+ -------+ ------+ ---------+| ?>90 ?| ?Stage one ?| ? Normal ?+ --+ -+ ----+| ?60-89 ?| ?Stage two ?| ? Decreased GFR ? + -+ + ---+| ?30-59 ?| ?Stage three ?| ? Stage three ? + -+ + ---+| ?15-29 ?| ?Stage four ? | ? Stage four ?+ --+ -+ ----+| ?<15 (or dialysis) ? ?| ?Stage five ? | ? Stage five ?+ --+ -+ ----+ *Each stage assumes the associated GFR level has been in effect for at least three months. ?Stages 1 to 5, with or without kidney disease, indicate chronic kidney disease. Notes: Determination of stages one and two (with eGFR >59mL/min/1.73 m2) requires estimation of kidney damage for at least three months as defined by structural or functional abnormalities of the kidney, manifested by either:Pathological abnormalities or Markers of kidney damage (including abnormalities in the composition of the blood or urine or abnormalities in imaging tests). [facility]"
[2022-03-20] MEDS ORDERED: ONDANSETRON 4 MG/2 ML VIAL ONE (15:40)
[2022-03-20] MEDS ORDERED: FAMOTIDINE 20 MG/2 ML VIAL IV ONE (15:40)
[2022-03-20] MEDS ORDERED: NA CHLORIDE 0.9% 1,000 ML ONE ×2 (15:40→17:04)
[2022-03-20 16:18] LABS: Absolute Lymphocytes (CBC) 1.1 K/uL (0.7-4.9); Hematocrit 37.8 % (36.0-45.0); Lymphocytes % 6.7 % (15.3-44.8); MCV 90.3 fL (80-100); MPV 8.6 fL (7.6-11.3); RBC Red Blood Cell Count 4.18 M/uL (3.86-4.86)
[2022-03-20 16:24] LABS: Albumin 4.5 g/dL (3.4-5.0); Bilirubin Total 1.3 mg/dL (0.2-1.0); Protein, Total 7.9 g/dL (6.4-8.2)
--- NOTE | 2022-03-21 00:05 | ER ---
Nurse's Notes [facility] Name: Tarah Lan Age: 27 yrs Sex: Female : 1995 Arrival Date: 03/20/2022 Time: 15:09 Bed 7 Private MD: Diagnosis: Nausea with vomiting, unspecified;Dehydration Presentation: 03/20 15:22 Chief complaint: Abdominal pain and N/V since yesterday. Not tolerating fluids. hb Actively vomiting in triage. Coronavirus screen: Client presents with at least one sign or symptom that may indicate coronavirus-19. Standard/surgical mask placed on the client. Provider contacted for isolation considerations. Ebola Screen: No symptoms or risks identified at this time. Initial Sepsis Screen: Does the patient meet any 2 criteria? No. Patient's initial sepsis screen is negative. Does the patient have a suspected source of infection? No. Patient's initial sepsis screen is negative. Risk Assessment: Do you want to hurt yourself or someone else? Patient reports no desire to harm self or others. Onset of symptoms was March 19, 2022. 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 - Social history:: Smoking status: Patient denies any tobacco usage or history of. Screenin:15 [facility] ED Fall Risk Assessment (Adult) History of falling in the last 3 months, ph including since admission No falls in past 3 months (0 pts) Confusion or Disorientation No (0 pts) Intoxicated or Sedated No (0 pts) Impaired Gait No (0 pts) Mobility Assist Device Used No (0 pt) Altered Elimination No (0 pt) Score/Fall Risk Level 0 - 2 = Low Risk Maintained a safe environment. Abuse screen: Denies threats or abuse. Denies injuries from another. Nutritional screening: No deficits noted. Tuberculosis screening: No symptoms or risk factors identified. 03/21 00:10 Humpty Dumpty Scale Fall Assessment Tool (age< 18yrs) Age 13 years and above (1 pt) ll3 Gender Female (1 pt) Fall Risk Score/ Level Low Fall Risk: </= 11 points Oriented to surroundings, Maintained a safe environment: Age specific bed with railing, Bed in low position\T\ wheels locked, Assess need for siderail use, Locks on, Rm \T\ paths clutter \T\ obstacle free, Proper lighting, Call light, personal item w/in reach, Alarms as needed, Educated pt \T\ family on fall prevention, incl. call for assistance when getting out of bed. Fall Risk No fall in past 12 months (0 pts). No secondary diagnosis (0 pts). IV access (20 points). Ambulatory Aid- None/Bed Rest/Nurse Assist (0 pts). Gait- Normal/Bed Rest/Wheelchair (0 pts) Mental Status- Oriented to own ability (0 pts). Total James Fall Scale indicates No Risk (0-24 pts). Assessment: 03/20 16:14 General: Appears in no apparent distress. uncomfortable, slender, Behavior is ph cooperative, appropriate for age. Pain: Pain: Complains of pain in abdomen. 16:14 Neuro: Level of Consciousness is awake, alert, obeys commands, Oriented to person, ph place, time, situation. Cardiovascular: Capillary refill < 3 seconds in bilateral fingers Patient's skin is warm and dry. Respiratory: Airway is patent Respiratory effort is even, unlabored. GI: Abdomen is non-distended, Pt is actively vomiting Bowel sounds present X 4 quads. Reports lower abdominal pain, upper abdominal pain, intolerance of fluids, nausea, vomiting. Derm: Skin is pink, warm \T\ dry. Musculoskeletal: Circulation, motion, and sensation intact. Range of motion: intact in all extremities. 20:00 Reassessment: Patient appears in no apparent distress at this time. Patient is alert, aa9 oriented x 3, equal unlabored respirations, skin warm/dry/pink. Vital Signs: 15:22 BP 122 / 68; Pulse 113; Resp 16; Temp 98.7(TE); Pulse Ox 100% on R/A; Weight 45.36 kg hb (M); Height 4 ft. 10 in. (147.32 cm); Pain 7/10; 16:16 BP 94 / 53; Pulse 102; Resp 18; Pulse Ox 100% ; ph 17:06 BP 105 / 86; Pulse 98; Resp 18; Pulse Ox 99% on R/A; ph 20:30 BP 104 / 70; Pulse 103; Resp 19 S; Pulse Ox 99% on R/A; aa9 22:00 BP 121 / 55; Pulse 101; Resp 19 S; Pulse Ox 100% ; aa9 03/21 00:09 BP 118 / 66; Pulse 89; Resp 16; Pulse Ox 100% on R/A; ll3 03/20 15:22 Body Mass Index 20.90 (45.36 kg, 147.32 cm) hb ED Course: 03/20 15:09 Patient arrived in ED. as 15:14 Tamra Nunez FNP-C is PHCP. kb 15:14 Sid Maguire MD is Attending Physician. kb 15:23 Triage completed. hb 15:23 Arm band placed on. hb 15:25 Katherine Fernández, RN is Primary Nurse. ph 16:16 Patient has correct armband on for positive identification. Placed in gown. Bed in low ph position. Call light in reach. Pulse ox on. NIBP on. Door closed. Noise minimized. Warm blanket given. 16:16 Inserted saline lock: 22 gauge in right antecubital area, using aseptic technique. ph Blood collected. 23:10 Diet: Patient given snack. Patient given ice chips. Patient given water. Tolerated well.aa9 03/21 00:10 No provider procedures requiring assistance completed. IV discontinued, intact, ll3 bleeding controlled, No redness/swelling at site. Pressure dressing applied. Administered Medications: 03/20 16:00 Drug: NS 0.9% 1000 ml Route: IV; Rate: 1 bolus; Site: right antecubital; ph 19:00 Follow up: Response: No adverse reaction; IV Status: Completed infusion; IV Intake: ll3 1000ml 16:00 Drug: Pepcid (famotidine) 20 mg Route: IVP; Site: right antecubital; ph 16:00 Drug: Zofran (Ondansetron) 4 mg Route: IVP; Site: right antecubital; ph 17:05 Drug: NS 0.9% 1000 ml Route: IV; Rate: 1 bolus; Site: right antecubital; ph 19:00 Follow up: Response: No adverse reaction; IV Status: Completed infusion; IV Intake: ll3 1000ml Medication: 16:16 VIS not applicable for this client. ph Intake: 19:00 IV: 1000ml; Total: 1000ml. ll3 19:00 IV: 1000ml; Total: 2000ml. ll3 Outcome: 03/21 00:04 Discharge ordered by . daija 00:10 Discharged to home ambulatory, with family. ll3 00:10 Condition: stable 00:10 Discharge instructions given to patient, Instructed on discharge instructions, follow up and referral plans. Demonstrated understanding of instructions, follow-up care. 00:12 Patient left the ED. ll3 Signatures: Tamra Nunez, CONCRETE TECHNICIAN-C CONCRETE TECHNICIAN-Molly Garcia Patricia, RN RN Irma August, NADER RN Emanuel Anderson RN RN ll3 Hoa Dhillon, RN RN aa9 Corrections: (The following items were deleted from the chart) 03/20 16:15 16:14 Pain: ph ph
--- NOTE | 2022-03-21 00:06 | EDPHYS ---
Physician Documentation [facility] Name: Tarah Lan Age: 27 yrs Sex: Female : 1995 Arrival Date: 03/20/2022 Time: 15:09 Bed 7 Private MD: ED Physician Sid Maguire HPI: 03/20 16:32 This 27 yrs old Female presents to ER via Wheelchair with complaints of kb Abdominal Pain, Vomiting. 16:32 The patient has not experienced similar symptoms in the past. The patient has not kb recently seen a physician. 16:32 The patient presents to the emergency department with nausea, vomiting. Onset: The kb symptoms/episode began/occurred this morning. Possible causes: etoh ingestion. The symptoms are aggravated by nothing. The symptoms are alleviated by nothing. Associated signs and symptoms: Pertinent positives: abdominal pain, nausea, vomiting, Pertinent negatives: constipation, diarrhea, fever. Severity of symptoms: At their worst the symptoms were moderate in the emergency department the symptoms are unchanged. 16:37 Pt reports she drank too much alcohol last night and woke up with a hangover causing kb her to vomit. Unable to tolerate anything by mouth. States she has some abd pain due to vomiting. 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 - Social history:: Smoking status: Patient denies any tobacco usage or history of. ROS: 16:31 Constitutional: Negative for fever, chills, and weight loss. kb 16:31 Abdomen/GI: Positive for abdominal pain, nausea and vomiting, Negative for diarrhea, constipation. 16:31 All other systems are negative. Exam: 16:31 Head/Face: Normocephalic, atraumatic. ENT: Moist Mucous membranes Cardiovascular: kb Regular rate and rhythm with a normal S1 and S2. No gallops, murmurs, or rubs. No pulse deficits. Respiratory: Respirations even and unlabored. No increased work of breathing. Talking in full sentences Abdomen/GI: Soft, non-tender. No distention Skin: Warm, dry with normal turgor. Normal color. MS/ Extremity: Pulses equal, no cyanosis. Neurovascular intact. Full, normal range of motion. Neuro: Awake and alert, GCS 15, oriented to person, place, time, and situation. Moves all extremities. Normal gait. Psych: Awake, alert, with orientation to person, place and time. Behavior, mood, and affect are within normal limits. 16:36 Constitutional: The patient appears alert, awake, uncomfortable. Vital Signs: 15:22 BP 122 / 68; Pulse 113; Resp 16; Temp 98.7(TE); Pulse Ox 100% on R/A; Weight 45.36 kg hb (M); Height 4 ft. 10 in. (147.32 cm); Pain 7/10; 16:16 BP 94 / 53; Pulse 102; Resp 18; Pulse Ox 100% ; ph 17:06 BP 105 / 86; Pulse 98; Resp 18; Pulse Ox 99% on R/A; ph 20:30 BP 104 / 70; Pulse 103; Resp 19 S; Pulse Ox 99% on R/A; aa9 22:00 BP 121 / 55; Pulse 101; Resp 19 S; Pulse Ox 100% ; aa9 03/21 00:09 BP 118 / 66; Pulse 89; Resp 16; Pulse Ox 100% on R/A; ll3 03/20 15:22 Body Mass Index 20.90 (45.36 kg, 147.32 cm) hb MDM: 03/20 15:16 Patient medically screened. kb 16:32 Data reviewed: vital signs, nurses notes. Data interpreted: Pulse oximetry: on room air kb is 100 %. Interpretation: normal. 18:28 ED course: Pt is feeling better, tolerating po intake. 03/21 00:03 Counseling: I had a detailed discussion with the patient and/or guardian regarding: the kb historical points, exam findings, and any diagnostic results supporting the discharge/admit diagnosis, lab results, the need for outpatient follow up, a family practitioner, to return to the emergency department if symptoms worsen or persist or if there are any questions or concerns that arise at home. ED course: Pt feeling better, tolerating po intake. Denies abd tenderness. States she is hungry now. 03/20 15:35 Order name: CBC with Diff; Complete Time: 16:22 kb 03/20 15:35 Order name: CMP; Complete Time: 16:26 kb 03/20 15:35 Order name: Lipase; Complete Time: 16:26 kb 03/20 18:19 Order name: Basic Metabolic Panel kb 03/20 15:35 Order name: IV Saline Lock; Complete Time: 16:14 kb 03/20 15:35 Order name: Labs collected and sent; Complete Time: 16:14 kb 03/20 17:03 Order name: PO challenge; Complete Time: 17:10 kb Administered Medications: 03/20 16:00 Drug: NS 0.9% 1000 ml Route: IV; Rate: 1 bolus; Site: right antecubital; ph 19:00 Follow up: Response: No adverse reaction; IV Status: Completed infusion; IV Intake: ll3 1000ml 16:00 Drug: Pepcid (famotidine) 20 mg Route: IVP; Site: right antecubital; ph 16:00 Drug: Zofran (Ondansetron) 4 mg Route: IVP; Site: right antecubital; ph 17:05 Drug: NS 0.9% 1000 ml Route: IV; Rate: 1 bolus; Site: right antecubital; ph 19:00 Follow up: Response: No adverse reaction; IV Status: Completed infusion; IV Intake: ll3 1000ml Disposition Summary: 03/21/22 00:04 Discharge Ordered Location: Home kb Condition: Stable kb Diagnosis - Nausea with vomiting, unspecified kb - Dehydration kb Followup: kb - With: Emergency Department - When: As needed - Reason: Worsening of condition Followup: kb - With: Private Physician - When: 2 - 3 days - Reason: Recheck today's complaints, Continuance of care, Re-evaluation by your physician Discharge Instructions: - Discharge Summary Sheet kb - Dehydration, Adult kb - Nausea and Vomiting, Adult, [id number] kb Forms: - Medication Reconciliation Form kb - Thank You Letter kb - Antibiotic Education kb - Prescription Opioid Use kb Signatures: Dispatcher [employer] EDMS Tamra Nunez, SAIRA-C MANAGER MAIL-Katherine Goldman RN RN Irma August RN RN Emanuel Anderson RN ll3 Corrections: (The following items were deleted from the chart) 16:37 16:31 Constitutional: This is a well developed, well nourished patient who is awake, kb alert, and in no acute distress. Head/Face: Normocephalic, atraumatic. ENT: Moist Mucous membranes Cardiovascular: Regular rate and rhythm with a normal S1 and S2. No gallops, murmurs, or rubs. No pulse deficits. Respiratory: Respirations even and unlabored. No increased work of breathing. Talking in full sentences Skin: Warm, dry with normal turgor. Normal color. MS/ Extremity: Pulses equal, no cyanosis. Neurovascular intact. Full, normal range of motion. Neuro: Awake and alert, GCS 15, oriented to person, place, time, and situation. Moves all extremities. Normal gait. Psych: Awake, alert, with orientation to person, place and time. Behavior, mood, and affect are within normal limits. kb
[2022-03-21 00:27] VITALS: TEMP 98.7
[2022-03-21 00:32] VITALS: O2SAT 100
[2022-03-21 00:33] VITALS: BP 118/66
[2022-03-21 04:46] LABS: Potassium 4.3 mmol/L (3.5-5.1)
== END 2022-03-21 00:12 | disposition home or self-care (01) ==
LOC: ER 15:08
DX: R11.2 Nausea with vomiting, unspecified (principal); E86.0 Dehydration
CPT/HCPCS: 96361; 85025; 80048; 36415; 83690; 80053; 96375; 96374; 99284; J7030 ×2; J2405

== ENCOUNTER 2024-03-11 13:44 | Emergency (ER) | payer OTHER, SELFPAY ==
[2024-03-11 15:15] LABS: Absolute Eosinophils 0.2 K/uL (0-0.5); Absolute Lymphocytes (CBC) 1.3 K/uL (0.7-4.9); Absolute Monocytes 0.6 K/uL (0.1-1.3); Absolute Neutrophil 11.8 K/uL (1.8-8.0); Basophils % 0.3 % (0-1.3); Eosinophils % 1.6 % (0-4.4); Hemoglobin 13.5 g/dL (12.0-15.0); Lymphocytes % 9.4 % (15.3-44.8); MCH 29.5 pg (27.0-35.0); MCHC 32.1 g/dL (32.0-36.0); MPV 8.4 fL (7.6-11.3); Neutrophils % 84.7 % (41.7-73.7); Platelets 325 thou/uL (152-406); RBC Red Blood Cell Count 4.57 M/uL (3.86-4.86); Red Cell Distribution Width 13.4 % (12.1-15.2)
[2024-03-11 15:39] LABS: BUN Blood Urea Nitrogen 7 mg/dL (7-18); Bicarbonate 26 mEq/L (21-32); Glomerular Filtration Rate 105 ml/min (=/>90); Glucose Level 92 mg/dL (74-106); Sodium Level 137 mEq/L (136-145)
[2024-03-11 15:40] LABS: HCG, Quantitative < 1 mIU/mL (1-3)
--- NOTE | 2024-03-11 16:13 | RAD REPORT ---
EXAMINATION: US Transvaginal Study Probe CLINICAL INDICATION: Female 29 years old. vaginal bleeding;Abd pain TECHNIQUE: Real-time ultrasonography of the pelvis was performed transvaginally. Color and spectral D oppler evaluation of the ovaries was performed. COMPARISON: 01/08/2022 CT abdomen and pelvis. FINDINGS: UTERUS AND CERVIX: The uterus measures 7.2 cm in length. The uterus is normal. No masses seen The end ometrium is normal, cm in thickness. RIGHT OVARY: Normal The right ovary measures 2.5 x 1.9 x 1.6 cm. Normal color and spectral Doppler evaluation of the right ovary.. LEFT OVARY: Normal The left ovary measures 4.2 x 2.6 x 2.7 cm. Dominant anechoic cyst/follicle measur ing 3.2 cm Normal color and spectral Doppler evaluation of the left ovary.. FREE FLUID: No free fluid. IMPRESSION: Dominant simple appearing left ovarian cyst/follicle. No other pelvic abnormalities noted.
[2024-03-11] MEDS ORDERED: KETOROLAC 30 MG/ML INJ ONE (16:19)
[2024-03-11] MEDS ORDERED: NA CHLORIDE 0.9% 500 ML ONE (17:02)
[2024-03-11] MEDS ORDERED: MORPHINE 4 MG/ML SYR ONE (17:02)
--- NOTE | 2024-03-11 19:20 | RAD REPORT ---
EXAMINATION: CT Abdomen Pelvis W Contrast CLINICAL INDICATION: Female, 29 years old. ABD PAIN TECHNIQUE: CT abdomen and pelvis was performed, after the administration of IV contrast, as per [facility]. Axial, sagittal and coronal reconstructions were obtained. One or more of the following dose reduction techniques were used: Automated exposure control, adjustment of the mA and k V according to patient size, and iterative reconstruction. Unless otherwise specified, incidental findings do not require dedicated imaging follow-up. COMPARISON: 01/08/2022 CT. Pelvic ultrasound of the same day. FINDINGS: LOWER CHEST: The visualized lung bases are clear. LIVER: Normal in size and contour. No focal lesion. BILIARY SYSTEM: Status post cholecystectomy. Prominent common bile duct and central intrahepatic bili destiney ductal dilation, probably relates to sequelae of cholecystectomy. SPLEEN: Normal size. No focal lesion. PANCREAS: No mass, ductal dilation, or abbey-pancreatic fluid. ADRENALS: Normal; no mass. KIDNEYS: Normal size and contour. No hydronephrosis. URINARY BLADDER: Mild diffuse wall prominence, nonspecific. GASTROINTESTINAL TRACT: No evidence of free air, significant intra-abdominal free fluid, bowel obstru ction or abscess. APPENDIX: Normal appendix. LYMPH NODES: No lymphadenopathy. MUSCULOSKELETAL: No acute or suspicious osseous abnormality. ADDITIONAL FINDINGS: Left adnexal 3.5 cm cyst, probably relates to the sonographic finding. IMPRESSION: No acute or concerning abnormalities seen in the abdomen or pelvis. Mild diffuse urinary bladder wall prominence, nonspecific, could relate to under distention or ongoin g cystitis. Incidental findings including a left adnexal cyst.
--- NOTE | 2024-03-11 19:31 | EDPHYS ---
Physician Documentation [facility] Name: Tarah Lan Age: 29 yrs Sex: Female : 1995 Arrival Date: 03/11/2024 Time: 13:44 Bed 9 Private MD: ED Physician Stefan Simpson HPI: 03/11 14:55 This 29 yrs old Female presents to ER via Wheelchair with complaints of cp Vaginal Bleeding, Blood Clots. 14:55 The patient presents with vaginal bleeding that is heavy, with clots, lower abdomen cp pain. 14:55 Onset: The symptoms/episode began/occurred 5 day(s) ago, and became worse this morning, cp with heavier bleeding and worsening pain. 14:55 Associated signs and symptoms: Pertinent negatives: constipation, diarrhea, cp dyspareunia, fever, vomiting. Severity of symptoms: in the emergency department the symptoms are unchanged, despite home interventions. 14:55 The patient's method of control includes Nexplanon. 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 - Infectious Disease History:: Denies. - Social history:: Smoking status: Patient denies any tobacco usage or history of. ROS: 15:00 Constitutional: Negative for body aches, chills, fever, poor PO intake, cp 15:00 Eyes: Negative for injury, pain, redness, and discharge, cp 15:00 ENT: Negative for drainage from ear(s), ear pain, sore throat, difficulty swallowing, difficulty handling secretions, 15:00 Cardiovascular: Negative for chest pain, edema, palpitations, 15:00 Respiratory: Negative for cough, shortness of breath, wheezing, 15:00 Abdomen/GI: Positive for nausea, abdominal cramps, Negative for vomiting, diarrhea, constipation, 15:00 Back: Negative for pain at rest, pain with movement, 15:00 : Positive for vaginal bleeding, Negative for urinary symptoms, 15:00 Neuro: Negative for altered mental status, dizziness, headache, weakness, 15:00 All other systems are negative, Exam: 15:05 Constitutional: The patient appears in no acute distress, alert, awake, non-toxic, well cp developed, well nourished, 15:05 Head/Face: Normocephalic, atraumatic. cp 15:05 Eyes: Periorbital structures: appear normal, Conjunctiva: normal, no exudate, no injection, Sclera: no appreciated abnormality, Lids and lashes: appear normal, bilaterally, 15:05 ENT: External ear(s): are unremarkable, Nose: is normal, Mouth: Lips: moist, Oral mucosa: pink and intact, moist, Posterior pharynx: Airway: no evidence of obstruction, patent, 15:05 Chest/axilla: Inspection: normal, 15:05 Cardiovascular: Rate: normal, Rhythm: regular, 15:05 Respiratory: the patient does not display signs of respiratory distress, Respirations: normal, no use of accessory muscles, no retractions, labored breathing, is not present, Breath sounds: are clear throughout, no decreased breath sounds, no stridor, no wheezing, 15:05 Abdomen/GI: Inspection: abdomen appears normal, Bowel sounds: active, all quadrants, Palpation: soft, in all quadrants, moderate abdominal tenderness, in the right lower quadrant and left lower quadrant, rebound tenderness, is not appreciated, involuntary guarding, is not appreciated, 15:05 Back: CVA tenderness, is absent, 15:05 Skin: no rash present. 15:05 Neuro: Orientation: to person, place \T\ time. Mentation: is normal, Motor: moves all fours, strength is normal, Sensation: is normal, Vital Signs: 14:51 BP 139 / 87; Pulse 85; Resp 16; Temp 98.2; Pulse Ox 100% on R/A; Weight 52.62 kg; hb Height 4 ft. 10 in. ; Pain 6/10; 17:10 BP 117 / 68; Pulse 62; Resp 18 S; Pulse Ox 100% on R/A; kc6 19:46 BP 114 / 69; Pulse 67; Resp 17 S; Pulse Ox 100% on R/A; lg3 14:51 Body Mass Index 24.24 (52.62 kg, 147.32 cm) hb 14:51 Pain Scale: Adult hb MDM: 14:47 Medical Screening Exam initiated cp 15:00 Differential diagnosis: ectopic , ovarian cyst, pelvic inflammatory disease, cp uterine fibroids, urinary tract infection, vaginosis. 19:30 Data reviewed: vital signs, nurses notes, lab test result(s), radiologic studies, CT cp scan, plain films. 19:30 I considered the following discharge prescriptions or medication management in the emergency department Medications were administered in the Emergency Department. See MAR. Counseling: I had a detailed discussion with the patient and/or guardian regarding the historical points, exam findings, and any diagnostic results supporting the discharge/admit diagnosis, lab results, radiology results, the need for outpatient follow up, an OB/Gyne specialist, to return to the emergency department if symptoms worsen or persist or if there are any questions or concerns that arise at home. Response to treatment: the patient's symptoms have mildly improved after treatment, and as a result, I will discharge patient. Special discussion: Based on the patient's Hx, exam, and Dx evaluation, there is no indication for emergent surgery or inpatient Tx. It is understood by the patient/guardian that if the Sx's persist or worsen they need to return immediately for re-evaluation. 03/11 14:50 Order name: Abo/rh Typing; Complete Time: 16:12 03/11 14:50 Order name: Basic Metabolic Panel; Complete Time: 16:12 03/11 14:50 Order name: CBC with Diff; Complete Time: 16:12 03/11 16:13 Interpretation: Normal except: WBC 13.90; JOHN% 84.7; LYM% 9.4; NEUT A 11.8. 03/11 14:50 Order name: Quantitative Hcg; Complete Time: 16:12 03/11 15:25 Order name: Transvaginal Study Probe; Complete Time: 16:30 EDMS 03/11 16:46 Order name: CT Abd/Pelvis - IV Contrast Only; Complete Time: 19:23 03/11 19:24 Interpretation: Report reviewed. 03/11 14:50 Order name: IV Saline Lock; Complete Time: 15:04 03/11 14:50 Order name: Labs collected and sent; Complete Time: 15:04 03/11 14:50 Order name: NPO; Complete Time: 15:04 03/11 19:24 Order name: PO challenge; Complete Time: 19:40 cp Administered Medications: 16:29 Drug: Ketorolac IVP 15 mg IVP once Route: IVP; Site: left antecubital; kc6 16:58 Follow up: Response: No adverse reaction; Pain is unchanged, physician notified kc6 17:10 Drug: morphine IVP or IV 4 mg IVP once over 4 mins Route: IVP; Infused Over: 4 mins; kc6 Site: left antecubital; 17:40 Follow up: Response: No adverse reaction; RASS: Alert and Calm (0) kc6 17:10 Drug: NS 0.9% IV 500 ml 500 ml IV at 1 bolus once; to be given as a bolus over 30 kc6 minutes Volume: 500 ml; Route: IV; Rate: 1 bolus; Site: left antecubital; 17:58 Follow up: Response: No adverse reaction; IV Status: Completed infusion; IV Intake: kc6 500ml Disposition Summary: 03/11/24 19:31 Discharge Ordered Notes: Location: Home cp Problem: new cp Symptoms: have improved cp Condition: Stable cp Diagnosis - Other and unspecified ovarian cysts cp - Abnormal uterine and vaginal bleeding, unspecified cp Followup: cp - With: Private Physician - When: 1 week - Reason: Recheck today's complaints Discharge Instructions: - Discharge Summary Sheet cp - Abnormal Uterine Bleeding cp - Ovarian Cyst cp Forms: - Work release form cp - Medication Reconciliation Form cp - Antibiotic Education cp - Prescription Opioid Use cp - Patient Portal Instructions cp - Leadership Thank You Letter cp Prescriptions: - diclofenac sodium 50 mg Oral tablet, delayed release (enteric coated) - take 1 tablet ORAL route 3 times per day; 30 tablet; Refills: 0, Product cp Selection Permitted Addendum: 03/18/2024 07:06 Co-signature as Attending Physician, Stefan Simpson MD I reviewed the patient's care r n provided by the Advanced Practice Provider and agree with the diagnosis and treatment plan. Signatures: Dispatcher [employer] Stefan Glynn MD MD rn Page, Corey, PA PA cp Irma August RN RN hb Campbell, Kaitlyn, RN RN kc6 Corrections: (The following items were deleted from the chart) 03/11 15:25 14:50 Pelvis Complete+[id number].BRZ ordered. DIANN TIDWELL
--- NOTE | 2024-03-11 19:31 | ER ---
Nurse's Notes [facility] Name: Tarah Lan Age: 29 yrs Sex: Female : 1995 Arrival Date: 03/11/2024 Time: 13:44 Bed 9 Private MD: Diagnosis: Other and unspecified ovarian cysts;Abnormal uterine and vaginal bleeding, unspecified Presentation: 03/11 14:51 Chief complaint: Spotty vaginal bleeding that started 5 days ago, became heavy this hb morning. LMP 02/24. Coronavirus screen: At this time, the client does not indicate any symptoms associated with coronavirus-19. Ebola Screen: No symptoms or risks identified at this time. Initial Sepsis Screen: Does the patient meet any 2 criteria? No. Patient's initial sepsis screen is negative. Does the patient have a suspected source of infection? No. Patient's initial sepsis screen is negative. Risk Assessment: Do you want to hurt yourself or someone else? Patient reports no desire to harm self or others. Onset of symptoms was March 07, 2024. 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 - Infectious Disease History:: Denies. - Social history:: Smoking status: Patient denies any tobacco usage or history of. Screenin:56 [facility] ED Fall Risk Assessment (Adult) History of falling in the last 3 months, kc6 including since admission No falls in past 3 months (0 pts) Confusion or Disorientation No (0 pts) Intoxicated or Sedated No (0 pts) Impaired Gait No (0 pts) Mobility Assist Device Used No (0 pt) Altered Elimination No (0 pt) Score/Fall Risk Level 0 - 2 = Low Risk Oriented to surroundings, Maintained a safe environment. Abuse screen: Denies threats or abuse. Denies injuries from another. Nutritional screening: No deficits noted. Tuberculosis screening: No symptoms or risk factors identified. Assessment: 16:56 General: Appears in no apparent distress. uncomfortable, well groomed, well developed, kc6 Behavior is calm, cooperative, appropriate for age. Pain: Complains of pain in suprapubic area. Neuro: Level of Consciousness is awake, alert, obeys commands, Oriented to person, place, time, situation, Appropriate for age. Cardiovascular: Capillary refill < 3 seconds. Respiratory: Airway is patent Trachea midline Respiratory effort is even, unlabored, Respiratory pattern is regular, symmetrical. GI: No signs and/or symptoms were reported involving the gastrointestinal system. : Reports cramping, in bilateral lower quadrant(s) vaginal bleeding that is bright red, with clots, heavy flow. EENT: No signs and/or symptoms were reported regarding the EENT system. Derm: No signs and/or symptoms reported regarding the dermatologic system. Skin is intact, is healthy with good turgor, Skin is pink, warm \T\ dry. Musculoskeletal: No signs and/or symptoms reported regarding the musculoskeletal system. Circulation, motion, and sensation intact. Capillary refill < 3 seconds, Range of motion: intact in all extremities. 18:18 Reassessment: Patient appears in no apparent distress at this time. No changes from kc6 previously documented assessment. Patient and/or family updated on plan of care and expected duration. Pain level reassessed. Patient is alert, oriented x 3, equal unlabored respirations, skin warm/dry/pink. 18:58 Reassessment: Patient appears in no apparent distress at this time. No changes from kc6 previously documented assessment. Patient and/or family updated on plan of care and expected duration. Pain level reassessed. Patient is alert, oriented x 3, equal unlabored respirations, skin warm/dry/pink. 19:46 Reassessment: Patient appears in no apparent distress at this time. No changes from lg3 previously documented assessment. Patient and/or family updated on plan of care and expected duration. Pain level reassessed. Patient is alert, oriented x 3, equal unlabored respirations, skin warm/dry/pink. Vital Signs: 14:51 BP 139 / 87; Pulse 85; Resp 16; Temp 98.2; Pulse Ox 100% on R/A; Weight 52.62 kg; hb Height 4 ft. 10 in. ; Pain 6/10; 17:10 BP 117 / 68; Pulse 62; Resp 18 S; Pulse Ox 100% on R/A; kc6 19:46 BP 114 / 69; Pulse 67; Resp 17 S; Pulse Ox 100% on R/A; lg3 14:51 Body Mass Index 24.24 (52.62 kg, 147.32 cm) hb 14:51 Pain Scale: Adult hb ED Course: 13:47 Patient arrived in ED. mr 14:17 Naif Brush PA is PHCP. cp 14:17 Yesenia Soliz MD is Attending Physician. cp 14:53 Triage completed. hb 14:55 Arm band placed on. hb 15:04 Abo/rh Typing Sent. bc6 15:04 Basic Metabolic Panel Sent. bc6 15:04 CBC with Diff Sent. bc6 15:04 Quantitative Hcg Sent. bc6 15:04 Initial lab(s) drawn, by id, sent to lab. Inserted saline lock: 20 gauge in left bc6 antecubital area, using aseptic technique. Blood collected. Flushed with 10 mL NS. 15:25 Transvaginal Study Probe In Process Unspecified. EDMS 16:15 Ruth Haynes, NADER is Primary Nurse. kc6 16:31 Stefan Simpson MD is Attending Physician. cp 16:56 Patient has correct armband on for positive identification. Bed in low position. Call kc6 light in reach. Side rails up X 1. Adult w/ patient. Pulse ox on. NIBP on. Door closed. Noise minimized. Lights dimmed. Warm blanket given. Pillow given. 16:56 Patient maintains SpO2 saturation greater than 95% on room air. kc6 18:04 CT Abd/Pelvis - IV Contrast Only In Process Unspecified. EDMS 18:58 Diet: Patient given ice chips. Tolerated well. kc6 19:46 No provider procedures requiring assistance completed. IV discontinued, intact, lg3 bleeding controlled, No redness/swelling at site. Pressure dressing applied. Administered Medications: 16:29 Drug: Ketorolac IVP 15 mg IVP once Route: IVP; Site: left antecubital; kc6 16:58 Follow up: Response: No adverse reaction; Pain is unchanged, physician notified kc6 17:10 Drug: morphine IVP or IV 4 mg IVP once over 4 mins Route: IVP; Infused Over: 4 mins; kc6 Site: left antecubital; 17:40 Follow up: Response: No adverse reaction; RASS: Alert and Calm (0) kc6 17:10 Drug: NS 0.9% IV 500 ml 500 ml IV at 1 bolus once; to be given as a bolus over 30 kc6 minutes Volume: 500 ml; Route: IV; Rate: 1 bolus; Site: left antecubital; 17:58 Follow up: Response: No adverse reaction; IV Status: Completed infusion; IV Intake: kc6 500ml Medication: 19:46 VIS not applicable for this client. lg3 Intake: 17:58 IV: 500ml; Total: 500ml. kc6 Outcome: 19:31 Discharge ordered by MD. cp 19:46 Discharged to home ambulatory, with family, lg3 19:46 Condition: stable 19:46 Discharge instructions given to patient, Instructed on discharge instructions, follow up and referral plans. medication usage, Demonstrated understanding of instructions, follow-up care, medications, Prescriptions given X 1, 19:51 Patient left the ED. lg3 Signatures: Dispatcher [employer] EDAR Estefani Valles, Darion Orlando mr Naif Brush, PA Irma Bill cp, RN Kiana García RN RN lg3 Ruth Haynes RN RN kc6 Constance Griffin [facility]
[2024-03-12 01:20] VITALS: TEMP 98.2; O2SAT 100
[2024-03-12 01:31] VITALS: BP 114/69
== END 2024-03-11 19:51 | disposition home or self-care (01) ==
LOC: ER 13:44
DX: N83.299 Other ovarian cyst, unspecified side (principal)
CPT/HCPCS: 36415; 74177; 76830; 80048; 84702; 85025; 86900; 86901; 96361; 96374; 96375; 99284; J7040; Q9967